=== PATIENT | male | born 1945 | race Caucasian/White ===

== ENCOUNTER 2017-12-04 17:45 | Emergency (ER) | payer OTHER, MEDICARE ==
[~2017-12-04] VITALS: Ht 170.2 cm; Wt 80.0 kg
[2017-12-04] MEDS ORDERED: KETOROLAC TROMETHAMINE 60 MG/2 ML (IM) VIAL IM ONE (18:00)
[2017-12-04] MEDS ORDERED: blood pressure PO (18:01)
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
[2017-12-04 19:15] VITALS: BP 188/90; PULSE 97; RESP 18; O2SAT 97
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
[2017-12-04] MEDS ORDERED: ROBA500T PO (19:57)
== END 2017-12-04 20:16 | disposition home or self-care (01) ==
LOC: NEPC 17:45
DX: S13.4XXA Sprain of ligaments of cervical spine, initial encounter (principal); S33.5XXA Sprain of ligaments of lumbar spine, initial encounter; V89.2XXA Person injured in unspecified motor-vehicle accident, traffic, initial encounter; Y92.411 Interstate highway as the place of occurrence of the external cause; I10 Essential (primary) hypertension; K21.9 Gastro-esophageal reflux disease without esophagitis
CPT/HCPCS: 72125; 72131; 96372; 99283; J1885

== ENCOUNTER 2018-06-04 08:30 | Inpatient (IN) ==
[~2018-06-04 08:30] MED LIST: Bupivacaine/Epinephrine 0.5% Inj 50 ML Vial ONE; Gelatin Size 100 Topical Foam ONE; Thrombin Topical Soln 5,000 UNIT Vial TOPICAL ONE; ceFAZolin 2 GM Premix Inj 2 GM/50 ML PIGGYBACK IV.SIG ONE
[2018-06-04] MEDS ORDERED: Vancomycin Inj 1,000 MG in Sodium Chlor 0.9% Inj 250 ML IV.SIG SCH (10:00)
[2018-06-04] MEDS ORDERED: Sodium Chloride 0.9% 2 ML Flush PRN IV.FLUSH (10:19)
[2018-06-04] MEDS ORDERED: Chlorhexidine Gluconate 2% 1 Pack (2 Cloths) TOPICAL ONE (10:30)
[2018-06-04] MEDS ORDERED: Metoprolol Tartrate 25 MG Tablet PO ONE (10:30)
[2018-06-04] MEDS ORDERED: Sodium Chlor 0.9% Inj 500 ML IV.CONT ONE (10:30)
[2018-06-04] MEDS: Sod Chloride 0.9% Inj 1,000 ML IV.SIG SCH (11:18)
[2018-06-04] MEDS ORDERED: Lidocaine PF 1% Inj 5 ML Syringe OTHER ONE (12:49)
[2018-06-04] MEDS ORDERED: Phenylephrine/NS 1000 MCG/10ML Syringe IV.PUSH ONE (12:49)
[2018-06-04] MEDS ORDERED: HYDROmorphone PF Inj 2 MG/ML Vial ONE ×2 (12:59→18:55)
[2018-06-04] MEDS ORDERED: Propofol Inj 500 MG/50 ML Vial ONE ×3 (12:59→20:10)
[2018-06-04] MEDS ORDERED: Naloxone Inj 0.4 MG/ML Vial IV.PUSH PRN (13:41)
[2018-06-04] MEDS ORDERED: Bisacodyl 10 MG Supp RECTAL PRN (13:41)
[2018-06-04] MEDS ORDERED: Acetaminophen 325 MG Tablet PO PRN (14:06)
[2018-06-04] MEDS ORDERED: HYDROmorphone PCA Inj 6 MG/30 ML PCA.VIAL PCA PRN (14:06)
[2018-06-04] MEDS ORDERED: fentaNYL Citrate Inj 100 MCG/2 ML Ampul ONE ×2 (15:06→18:31)
--- NOTE | 2018-06-04 18:26 | XR ---
EXAM DATE: 06/04/2018 12:00 AM EDT AGE/SEX: 73 years / Male INDICATIONS: Fusion L4,L5 with screws and rods placement. CLINICAL DATA: This is the patient's initial encounter. Patient reports that signs and symptoms have been present for 1 day and indicates a pain score of Nonresponsive. MEDICAL/SURGICAL HISTORY: None. None. COMPARISON: [facility], XR SPINE LUMBAR FLEX AND EXT, 05/21/2018. . FINDINGS: Several images in the operating room show interim fusion procedure with interbody and posterior instr umentation at L4/L5. Alignment is unchanged, near-anatomic. A posterior surgical drain is present. No acute complications are seen. CONCLUSION: Interim fusion with interbody and posterior instrumentation at L4/L5 in near-anatomic alignment. Electronically signed by: Cl Salguero MD 06/04/2018 6:24 PM EDT
[2018-06-04] MEDS ORDERED: *morphine SULFATE 4 MG/ML PERIprocedure ONLY ONE ×2 (18:39→18:47)
--- NOTE | 2018-06-04 18:42 | P.OP ---
Preoperative Diagnosis: Lumbar Postlaminectomy syndrome with spondylolisthesis Postoperative Diagnosis: Lumbar Postlaminectomy syndrome with spondylolisthesis Date of procedure: 06/04/18 Procedure: Redo L4-L5 laminectomy, interbody arthrodesis using PEEK cage and autologous bone graft, L4-L5 instrumental fixation using transpedicular screws and rods, L4 -L5 automation test developer lateral fusion using autologous bone graft and demineralized bone matrix. Microsurgical dissection [facility] Surgeon: Porfirio Pederson MD Student Services Coordinator: Holly Catherine Pathology: none sent Operation and Findings: INDICATIONS FOR THE SURGICAL PROCEDURE Mr Michelle is a 73 year-old male who presented with intractable mechanical back pain and delores evidence of L5 lower extremity radiculopathy. He had history of a prior bilateral laminectomy done by Dr Jeff bush. He failed maximum nonsurgical management including multiple modalities of conservative treatment as well as pain management interventions by an interventional pain specialist. A surgical decompression and arthrodesis were indicated as a last resort. The [id number] details of the procedure, indications, alternatives, risks and potential complications were fully discussed with the patient. The patient fully understood. All the questions were answered. No guarantees were given. The patient voiced requesting the procedure and provided informed consents. The patient was offered the alternative of delaying the procedure and continuing with nonsurgical management. DETAILS OF THE SURGICAL PROCEDURE Prior to the procedure, the surgical incision was marked in the preoperative surgical holding room, and the procedure, risks, and potential complications revisited with the patient. Placement of electrodes for intraoperative neurophysiological monitoring was completed. The patient was taken to the operative room, and following induction of general anesthesia, endotracheal intubation was performed. A Russo catheter, bilateral VERA hose and sequential compression devices were placed and kept throughout the procedure. The patient was positioned prone, over a Mac table over a bolsters. All pressure in the preoperative surgical holding room points were carefully padded with eggcrate and gel mattress. The eyes were tapped shut after ointment was applied by the anesthesiologist to prevent corneal abrasion. A Conrado hugger was placed over the exposed lower body to maintain control of the core body temperature. The electrophysiological team placed the needles and electrodes in their proper location and baseline SSEP's and EMG potentials were registered. The entrance to each pedicles was marked using a C arm. The lumbar region was prepped and draped in the usual sterile fashion. The surgical procedure was performed in several steps as follow: SURGICAL APPROACH Once the patient was positioned, a localizing cross-table lateral x-ray was performed with a C-arm. Two paramedian small incisions were outlined on the skin approximately 3cm from the midline. The skin incisions were made with a # 10 blade. Small bleeders were controlled with the cautery. The dissection was then carried out into deper planes and through the thoracolumbar fascia with a Bovie. The intermuscular septum was identified and the myscles were blunted dissected along the septum. The facets and transverse process of L4 and L5 were exposed and the proper anatomical landmarks were identidied. A microsurgical self-retaining retractor was placed on the incision, and a localizing lateralizing cross-table x-ray was performed with an instrument underneath a lamina of the lumbar spine. INSTRUMENTAL FIXATION At this point in the procedure, placement of bilateral transpedicular screws was necessary for stabilization of the spine. Initially, the entry point for the screw was selected anatomically at the junction of the facet, with the transverse process, and the pars interarticularis at L4 and L5. This was started with a Giamshetti needle followed by the use of a frias wire. A tap was used to create the threads for the screws. Finally bilateral transpedicular screws were carefully placed bilaterally at L4, and L5 under fluoroscopic visualization. An appropriate purchase was achieved with all screws. The position of each screw was assessed anatomically with an AP, lateral , oblique Xrays. An intraoperative scan view of the spine was then performed using the iso-centric c-arm. Each screw was then assessed electrophysiologically stimulating each screw with a nerve stimulator. SURGICAL DECOMPRESSION There was significant mass effect with compression of the neural structures. In order to relieve neural compression, it was necessary to perform a decompressive laminectomy, with decompression of the spinal canal and bilateral lateral recesses. Note that the scope of such decompression was significantly more extensive than the minimal exposure necessary to perform an interbody fusion, as there was extreme facet arthropathy with near complete collapse of the disk spaces and severe stenosis cause by the hyperthrophic joint facets. At this point of the procedure the operative microscope was draped in the usual sterile fashion and brought to the field. The rest of the surgical procedure was performed using microdissection technique with the exception of the closure. Under the operating microscope, a decompressive laminectomy was carried out at L4-L5 as follow: The laminae, base of the spinous processes and facets were carefully drilled exposing the ligamentum flavum. The facets were abnormal with severe spondylolisthesis and gross mechanical instability. A large disk protusion was compressing the neural structures and exiting nerve roots. A near complete facetectomy was necessary resulting in further mechanical instability. The ligamentum flavum appeared hypertrophic, resulting on mass effect on the dorsal surface of the neural structures. The superior free border of the ligamentum flavum was elevated with a ligament dissector and the ligamentum flavum was removed with a 3 and 4 mm Kerrison forceps. The ligament was very adherent to the dural sac and during the dissection, and extreme care was taken during the dissection. The exiting nerve roots were identified, and a wide foraminotomy was performed with a Kerrison in their trajectory towards the neural foramen. Epidural veins located laterally to the dural sac were coagulated with the bipolar cautery, and then incised using microscissors. Gentle medial retraction of the dural sac allowed me to expose the disc space for the discectomy. Upon completion of the discectomy, an excellent decompression of the neural structures was achieved. Increased motion was noted thorough the procedure, which was consistent with mechanical instability. INTERBODY ARTHRODHESIS In order to correct the narrowing of the disk space and maintain distraction of the space, and to achieve a solid interbody fusion, it was necessary the insertion of an interbody device into the disk space. Otherwise, the disk space would collapse, compromising the result of the surgical procedure. At this point of the procedure, the annulus fibrosus of the disk was carefully coagulated with a bipolar cautery and incised using an 11 bladed knife. Then, a microdiscectomy was carried out in a standard fashion using a combination of straight and up-biting pituitary forceps. A reverse angle curette was applied underneath the posterior longitudinal ligament, and used to push the disk fragments into the disk space, so they can be safely removed with a pituitary forceps. Once the discectomy was completed, it was necessary to decorticate the endplates, in order to eliminate the cartilaginous endplate and to expose healthy bone appropriate to perform the interbody fusion. The endplates at L4- L5 were then thoroughly decorticated using increasing size bone uvaldo and ring curets, eliminating the cartilaginous fragments from both, the superior and inferior endplates. A disk space distractor was applied to the pedicle screws and gentle distraction was applied. This maneuver was assisted by the use of a disk distractor. Increased motility was noted at the disk, which was consistent with instability due to facet arthropathy. Once a thorough preparation of the disk space was achieved, the disk space was irrigated with antibiotic solution, and the interbody fusion was performed by carefully impacting an expandable PPEK cage filled with autologous iliac crest bone graft. The cage was cartefully expanded. A solid position of the cage with good purchase was achieved. The position of the cage was assessed anatomically with a probe and radiologically with the C-arm. POSTEROLATERAL FUSION The posterolateral fusion is a critical component to the procedure, to prevent future fatigue and failure of the instrumental fixation. Initially, the transverse processes of the vertebral bodies, lateral surface of the facets and the lateral gutters of the spine were carefully cleaned, eliminating all soft tissue and muscle attachments. The area was then irrigated with a large amount of antibiotic solution. Subsequently, the transverse processes, lateral surface of the facets, and lateral gutters of the spine were thoroughly decorticated using the TPS drill with a 5mm cutting frantz, exposing cancellous bone, in preparation for the posterolateral fusion. The incision was again irrigated with antibiotic solution. Then, the posterolateral fusion was then performed by carefully packing the lateral gutters of the spine at L4-L5 with autologous iliac crest bone combined with demineralized bone matrix. COMPLETION OF THE INSTRUMENTATION AND CLOSURE The rods were brought to the field, applied to all the screws, and the screw caps were sequentially applied. Compression was performed between the pedicle screws, and final tightening of the screws was completed using a torque wrench. The incision was again thoroughly irrigated with several liters of antibiotic solution, and hemostasis secured with the bipolar cautery. A Valsalva Maneuver performed by the anesthesiologist failed to show any evidence of cerebrospinal fluid leak or bleeding. A 7 mm Mac-Palacios drain was left in the epidural space and externalized through a separate stab incision. The incision was then closed in planes. 0 Vicryl was used in an interrupted fashion to close the thoracolumbar fascia and the superficial fascia. The subcutaneous tissue was then approximated using 3-0 Vicryl in an interrupted fashion. Special care was taken to avoid space. The skin was then closed with 4-0 Vicryl in a running, subcuticular fashion. Dermabond was applied to the skin. Each plane of closure was irrigated with antibiotic solution. At the end of the procedure the sponge, needle and instrument counts were all correct. Estimated blood loss was 200cc. No blood transfusion was given. The entire procedure was performed using continuous electrophysiological monitoring of the somatosensorial evoked potentials and EMG. The patient received prophylactic antibiotics. The patient was then extubated and transferred to the recovery room in stable condition.
[2018-06-04] MEDS: Sodium Chloride 0.9% 2 ML Flush BID IV.FLUSH SCH (21:19)
[2018-06-04] MEDS: Senna/Docusate Sodium 8.6/50 MG Tablet PO SCH (21:19)
[2018-06-04] MEDS: ceFAZolin 2 GM Premix Inj 2 GM/50 ML PIGGYBACK IV.SIG SCH (21:19)
--- NOTE | 2018-06-04 22:14 | P.CON ---
History of Present Illness Service: [facility] hospitalists Consult date: 06/04/18 Requesting Physician: Porfirio Pederson Reason for Consult: Assistance with medical management Primary Care Provider: No Primary Care Physician Family Provider: No Primary Care Physician Chief Complaint: Back pain History of Present Illness: Mr. Michelle is a very pleasant 73-year-old male with a history of L4-L5 laminectomy in 2012 due to herniated disc/spinal stenosis who presented to [facility] main campus for redo of L4-L5 laminectomy by Dr. Pederson for lumbar postlaminectomy syndrome with spondylolisthesis. Hospitalist service was consulted for assistance with medical management of hypertension and hyperlipidemia. The patient is seen in his hospital room. He reports severe low back pain that comes and goes intermittently and is worsened with movement. He has not been using his METAL BONDING ASSEMBLER pump for patient-controlled boluses. I instructed him on use of his METAL BONDING ASSEMBLER pump for adequate pain relief. He denies any fevers, chills, chest pain , shortness of breath, nausea, vomiting, or diarrhea. He denies any weakness or paresthesias. Review of Systems All other systems reviewed negative except as stated in HPI PMFSH - History History Provided By: Patient - Medical History Medical History: Medical History (Last Reviewed 06/04/18 @ 22:32 by SETH Shultz) Anxiety Depression Herniated disc High cholesterol Hx deployment Hypertension Spinal stenosis Wears glasses - Surgical History Surgical History: Surgical History (Last Reviewed 06/04/18 @ 22:32 by SETH Shultz) History of appendectomy History of discectomy History of inguinal hernia repair Hx of rotator cuff surgery - Family History Family History: Family History (Last Updated 06/04/18 @ 22:33 by SETH Shultz) Father Family history of KS (myocardial infarction) Brother Family history of COPD (chronic obstructive pulmonary disease) - Social History I have reviewed the patient's Social History: Yes - Tobacco History Second Hand Smoke Exposure: No Smoking Status: Never smoker - Alcohol History How Often Do You Have a Drink Containing Alcohol: 4 or more times a week - Substance Use History Substance History: No History of Abuse - Travel History Recent Travel in the [place] Within the Last 8 Weeks: No Recent Travel Out of the Country Within the Last 8 Weeks: No Medications and Allergies Active Medications: Active Medications Acetaminophen (Tylenol) 650 mg PO Q4H PRN PRN Reason: TEMPERATURE > 101.5 F Hydrocodone Bitart/Acetaminophen ([place] 10/325) 1 tab PO Q4H PRN PRN Reason: Pain Scale 1 To 5 Al Hydroxide/Mg Hydroxide (Milk Of Soraida Quinn) 30 ml PO Q12H PRN PRN Reason: Mild Constipation Albuterol (Albuterol Neb (Prn)) 2.5 mg NEB Q4HR NEB PRN PRN Reason: WHEEZING Amlodipine Besylate (Norvasc) 10 mg PO DAILY [facility] Atorvastatin Calcium (Lipitor) 10 mg PO DAILY [facility] Bisacodyl (Dulcolax Supp) 10 mg RECTAL DAILY PRN PRN Reason: SEVERE CONSITIPATION Clonidine HCl (Catapres) 0.1 mg PO Q6H PRN PRN Reason: SYS BP GREATER THAN 170 MMHG Cyclobenzaprine HCl (Flexeril) 10 mg PO Q8H PRN PRN Reason: MUSCLE SPASM Hydrochlorothiazide (Hydrodiuril) 25 mg PO DAILY [facility] Lactated Ringer's (Lr 1000 Ml Inj) 1,000 mls @ 30 mls/hr IV.CONT .Q24H ONE Stop: 06/05/18 10:29 Last Infusion: 06/04/18 18:38 Dose: Infused Sodium Chloride (Ns Inj) 500 mls @ 30 mls/hr IV.CONT .[id number] ONE Stop: 06/05/18 03:09 Last Admin: 06/04/18 11:18 Dose: Not Given Sodium Chloride (Ns Inj) 1,000 mls @ 30 mls/hr IV.SIG .Q24H [facility] Last Admin: 06/04/18 11:18 Dose: Not Given Vancomycin HCl 1,000 mg/ (Sodium Chloride) 250 mls @ 250 mls/hr IV.SIG WOMEN'S SOCCER COACH [facility] Stop: 06/07/18 09:59 Cefazolin Sodium/Dextrose (Ancef 2 Gm Premix Inj) 2 gm in 50 mls @ 100 mls/hr IV.SIG Q8H [facility] Stop: 06/05/18 14:29 Last Admin: 06/04/18 21:19 Dose: 100 mls/hr Hydromorphone/Sodium Chloride (Dilaudid Family And Consumer Education Teacher Inj) 6 mg in 30 mls @ 0 mls/hr [employer]SEM[employer]ER UNSCH PRN PRN Reason: per METAL BONDING ASSEMBLER parameters Last Admin: 06/04/18 19:45 Dose: 0 mls/hr Lactulose (Lactulose Liq) 30 ml PO DAILY PRN PRN Reason: SEVERE CONSITIPATION Miscellaneous Information (Misc Nursing Information) 1 each OTHER UNSCH PRN PRN Reason: SEE LABEL COMMENTS Stop: 06/05/18 19:14 Naloxone HCl (Narcan Inj) 0.4 mg IV.PUSH PRN PRN PRN Reason: SEE LABEL COMMENTS Ondansetron HCl (Zofran Inj) 4 mg IV.PUSH Q6H PRN PRN Reason: NAUSEA OR VOMITING Pantoprazole Sodium (Protonix) 40 mg PO DAILY [facility] Potassium Chloride (Kcl) 10 meq PO DAILY [facility] Senna/Docusate Sodium (Perri-Colace) 1 tab PO BID [facility] Last Admin: 06/04/18 21:19 Dose: 1 tab Sennosides (Senokot) 17.2 mg PO Q12H PRN PRN Reason: Moderate Constipation Sodium Chloride (Ns Flush) 2 ml IV.FLUSH BID [facility] Last Admin: 06/04/18 21:19 Dose: 2 ml Sodium Chloride (Ns Flush) 2 ml IV.FLUSH PRN PRN PRN Reason: FLUSH AFTER USING IV ACCESS Venlafaxine HCl (Effexor Xr) 150 mg PO DAILY [facility] Zolpidem Tartrate (Ambien) 10 mg PO [facility] Allergies Allergy/AdvReac Type Severity Reaction Status Date / Time No Known Allergies Allergy Verified 06/04/18 11:02 Home Medications Medication Instructions Recorded Confirmed Type amlodipine 10 mg PO DAILY 06/01/18 06/04/18 History hydrochlorothiazide 25 mg PO DAILY 06/01/18 06/04/18 History potassium chloride 10 meq PO DAILY 06/01/18 06/04/18 History rosuvastatin 10 mg PO DAILY 06/01/18 06/04/18 History venlafaxine 150 mg PO DAILY 06/01/18 06/04/18 History zolpidem 10 mg PO DAILY 06/01/18 06/04/18 History Physical Exam Vital signs: Vital Signs 06/04/18 11:02 06/04/18 18:17 06/04/18 18:30 Temperature 98.2 F 98.3 F Pulse Rate 74 93 H 92 H Respiratory Rate 16 14 14 Blood Pressure 149/89 H 124/66 125/60 Pulse Oximetry 98 98 95 06/04/18 18:45 06/04/18 19:00 06/04/18 19:15 Temperature Pulse Rate 106 H 109 H 96 H Respiratory Rate 12 13 13 Blood Pressure 104/54 L 99/48 L 98/56 L Pulse Oximetry 98 97 97 06/04/18 19:30 06/04/18 19:45 06/04/18 20:00 Temperature 98.4 F Pulse Rate 96 H 100 H 96 H Respiratory Rate 12 12 14 Blood Pressure 113/62 116/63 119/60 Pulse Oximetry 95 96 97 06/04/18 20:32 Temperature Pulse Rate Respiratory Rate 17 Blood Pressure Pulse Oximetry Intake & Output 06/04/18 06/04/18 06/05/18 06:59 18:59 06:59 Intake Total 2450 / 2450 60 / 60 Output Total 1100 / 1100 180 / 180 Balance 1350 / 1350 -120 / -120 Weight 78.5 kg Intake: IV 1050 / 1050 LR 1000 mL Inj 1,000 ML @ 30 1000 / 1000 mls/hr IV.CONT .Q24H ONE Rx#: [id number] Ancef 2 GM Premix Inj 2 gm In 50 / 50 50 ml @ 0 mls/hr IV.SIG .STK- MED ONE Rx#:[id number] Oral 60 / 60 Anesthesia Amount 1400 / 1400 Output: Estimated Blood Loss 200 / 200 Urine Amount (Catheter) 900 / 900 150 / 150 Indwelling Urethral Catheter 900 / 900 150 / 150 Wound Drainage 30 / 30 Lower Back 30 / 30 Other: Weight On Admission 78.5 kg Narrative: GENERAL: This is a very pleasant well-nourished, well-developed elderly male patient, in no apparent distress. SKIN: No rashes, ecchymoses or lesions. Cool and dry. HEAD: Atraumatic. Normocephalic. EYES: No scleral icterus. No injection or drainage. ENT: Nose without bleeding, purulent drainage. NECK: Trachea midline. No JVD. CARDIOVASCULAR: Regular rate and rhythm without murmurs, gallops, or rubs. RESPIRATORY: Clear to auscultation. Breath sounds equal bilaterally. No wheezes , rales, or rhonchi. GASTROINTESTINAL: Abdomen soft, non-tender, nondistended. No guarding. MUSCULOSKELETAL: Extremities without clubbing, cyanosis, or edema. No calf tenderness. NEUROLOGICAL: Awake and alert. Motor and sensory grossly within normal limits. Normal speech. . - Urinary Catheter Management Indwelling Urethral Catheter Cath placed during this visit: yes Reason for continuing: Hourly intake/output Insertion date: 06/04/18 Insertion time: 13:10 Assessment and Plan - Plan Mr. Michelle is a very pleasant 73-year-old male with a history of L4-L5 laminectomy in 2012 due to herniated disc/spinal stenosis who presented to [facility] [place] for redo of L4-L5 laminectomy by Dr. Pederson for lumbar postlaminectomy syndrome with spondylolisthesis. Hospitalist service was consulted for assistance with medical management of hypertension and hyperlipidemia. Status post L4-L5 laminectomy by Dr. Pederson -Reviewed use of METAL BONDING ASSEMBLER pain pump for adequate analgesia -Further management per Dr. Pederson Hypertension -Home medications continued: Amlodipine, hydrochlorothiazide -PRN clonidine for blood pressure elevation -Monitor blood pressure trends and adjust treatments as needed - bp currently well-controlled Anxiety/depression -Home Effexor continued Hyperlipidemia -Home statin continued DVT prophylaxis -SCDs -Chemoprophylaxis per neurosurgery . Discussed Condition With: patient and Dr. Gutierrez .
[2018-06-05] MEDS: ceFAZolin 2 GM Premix Inj 2 GM/50 ML PIGGYBACK IV.SIG SCH ×2 (05:09→13:39)
--- NOTE | 2018-06-05 07:43 | P.PN ---
Subjective Interval history: awake and alert + pain low back- not much when laying still but increase pain when he tries to move on HEAD PORTER BAGGAGE pump- currently post op as OP was on po Lortab Physical Exam Vital signs: Vital Signs 06/04/18 11:02 06/04/18 18:17 06/04/18 18:30 Temperature 98.2 F 98.3 F Pulse Rate 74 93 H 92 H Respiratory Rate 16 14 14 Blood Pressure 149/89 H 124/66 125/60 Pulse Oximetry 98 98 95 06/04/18 18:45 06/04/18 19:00 06/04/18 19:15 Temperature Pulse Rate 106 H 109 H 96 H Respiratory Rate 12 13 13 Blood Pressure 104/54 L 99/48 L 98/56 L Pulse Oximetry 98 97 97 06/04/18 19:30 06/04/18 19:45 06/04/18 20:00 Temperature 98.4 F Pulse Rate 96 H 100 H 96 H Respiratory Rate 12 12 14 Blood Pressure 113/62 116/63 119/60 Pulse Oximetry 95 96 97 06/04/18 20:32 06/05/18 00:00 06/05/18 00:15 Temperature 97.2 F L Pulse Rate 103 H Respiratory Rate 17 18 18 Blood Pressure 151/81 H Pulse Oximetry 97 06/05/18 04:00 Temperature 97.9 F Pulse Rate 89 Respiratory Rate 18 Blood Pressure 162/79 H Pulse Oximetry 97 Intake & Output 06/04/18 06/05/18 06/05/18 18:59 06:59 18:59 Intake Total 2450 / 2450 110 / 110 Output Total 1100 / 1100 1105 / 1105 Balance 1350 / 1350 -995 / -995 Weight 78.5 kg Intake: IV 1050 / 1050 50 / 50 LR 1000 mL Inj 1,000 ML @ 30 1000 / 1000 mls/hr IV.CONT .Q24H ONE Rx#: [id number] Ancef 2 GM Premix Inj 2 gm In 50 / 50 50 / 50 50 ml @ 100 mls/hr IV.SIG Q8H [facility] Rx#:[id number] Oral 60 / 60 Anesthesia Amount 1400 / 1400 Output: Urine 925 / 925 Estimated Blood Loss 200 / 200 Urine Amount (Catheter) 900 / 900 150 / 150 Indwelling Urethral Catheter 900 / 900 150 / 150 Wound Drainage 30 / 30 Lower Back 30 / 30 Other: Weight On Admission 78.5 kg Narrative: GENERAL: This is a very pleasant well-nourished, well-developed elderly male patient, in no apparent distress. HEAD: Atraumatic EYES: No scleral icterus. ENT: Nose without bleeding NECK: Trachea midline. No JVD. CARDIOVASCULAR: Regular rate and rhythm without murmurs, gallops, or rubs. RESPIRATORY: Clear to auscultation. Breath sounds equal bilaterally. No wheezes , rales, or rhonchi. GASTROINTESTINAL: Abdomen soft, non-tender, nondistended. No guarding. + alejandra catheter in place MUSCULOSKELETAL: Extremities without clubbing, cyanosis, or edema. No calf tenderness. SCDs in place grossly no sensory deficits, moves all extremities spontaneously NEUROLOGICAL: Awake and alert. moves all extremities spontaneously . - Urinary Catheter Management Indwelling Urethral Catheter Cath placed during this visit: yes Reason for continuing: Hourly intake/output Insertion date: 06/04/18 Insertion time: 13:10 Results - Labs Laboratory Results - last 24 hr 06/04/18 10:30 Blood Type O Positive Blood Type Recheck Required Antibody Screen Negative - Imaging Impressions Lumbar Spine X-Ray 06/04/18 00:00 CONCLUSION: Interim fusion with interbody and posterior instrumentation at L4/L5 in near- anatomic alignment. - Procedures 06/04 Redo L4-L5 laminectomy, interbody arthrodesis using PEEK cage and autologous bone graft, L4-L5 instrumental fixation using transpedicular screws and rods, L4 -L5 sorting cows worker lateral fusion using autologous bone graft and demineralized bone matrix. Microsurgical dissection Assessment and Plan - Plan Mr. Michelle is a very pleasant 73-year-old male with a history of L4-L5 laminectomy in 2012 due to herniated disc/spinal stenosis who [place] [facility] [place] redo of L4-L5 laminectomy by Dr. Pederson for lumbar postlaminectomy syndrome with spondylolisthesis. Status post L4-L5 laminectomy y Dr. Pederson -Reviewed use of HEAD PORTER BAGGAGE pain pump for adequate analgesia -Further management per Dr. Pederson - PT eval Hypertension - some eleated readings due to pain- encouraged patient to use HEAD PORTER BAGGAGE pump -Home medications continued: Amlodipine, hydrochlorothiazide -PRN clonidine for blood pressure elevation Anxiety/depression -Home Effexor continued Hyperlipidemia -Home statin continued DVT prophylaxis -SCDs CM- DC planning- home with OP/Home PT vs SNF .
[2018-06-05 08:07] LABS: Baso % (Auto) 0.1 % (0.0-2.0); Hematocrit 36.5 % (39.0-51.0); Hemoglobin 12.8 gm/dL (13.0-17.0); Lymph # (Auto) 0.8 th/mm3 (1.0-4.8); Lymph % (Auto) 12.2 % (9.0-44.0); Mean Corpuscular HGB Conc 35.2 % (32.0-36.0); Mean Corpuscular Hemoglobin 33.4 pg (27.0-34.0); Mean Corpuscular Volume 94.9 fL (80.0-100.0); Mono # (Auto) 0.8 th/mm3 (0.0-0.9); Mono % (Auto) 12.5 % (0.0-8.0); Neut # (Auto) 4.9 th/mm3 (1.8-7.7); Neut % (Auto) 75.2 % (16.0-70.0); Platelet Count 191 th/mm3 (150-450); Red Blood Count 3.84 mil/mm3 (4.50-5.90); Red Cell Distribution Width 12.7 % (11.6-17.2); White Blood Count 6.5 th/mm3 (4.0-11.0)
[2018-06-05 08:32] LABS: Calcium 8.1 mg/dL (8.5-10.1); Carbon Dioxide 23.8 meq/L (21.0-32.0); Potassium 3.7 meq/L (3.5-5.1)
[2018-06-05] MEDS: Senna/Docusate Sodium 8.6/50 MG Tablet PO SCH ×2 (08:46→20:39)
[2018-06-05] MEDS: Potassium Chloride 10 MEQ ER Capsule PO SCH (08:46)
[2018-06-05] MEDS: amLODIPine 10 MG Tablet PO SCH (08:46)
[2018-06-05] MEDS: hydroCHLOROthiazide 25 MG Tablet PO SCH (08:46)
[2018-06-05] MEDS: Venlafaxine XR 75 MG Capsule PO SCH (08:47)
[2018-06-05] MEDS: Sodium Chloride 0.9% 2 ML Flush BID IV.FLUSH SCH ×2 (08:47→20:39)
--- NOTE | 2018-06-05 11:24 | P.PNNS ---
Subjective Interval history: Did well overnight, did not use CONCRETE MIXER much, ambulated the [place] and back with PT states "midline pain is gone, but I have a right-sided pain", overall pleased with surgery, asking about discharge Physical Exam Vital signs: Vital Signs 06/04/18 18:17 06/04/18 18:30 06/04/18 18:45 Temperature 98.3 F Pulse Rate 93 H 92 H 106 H Respiratory Rate 14 14 12 Blood Pressure 124/66 125/60 104/54 L Pulse Oximetry 98 95 98 06/04/18 19:00 06/04/18 19:15 06/04/18 19:30 Temperature Pulse Rate 109 H 96 H 96 H Respiratory Rate 13 13 12 Blood Pressure 99/48 L 98/56 L 113/62 Pulse Oximetry 97 97 95 06/04/18 19:45 06/04/18 20:00 06/04/18 20:32 Temperature 98.4 F Pulse Rate 100 H 96 H Respiratory Rate 12 14 17 Blood Pressure 116/63 119/60 Pulse Oximetry 96 97 06/05/18 00:00 06/05/18 00:15 06/05/18 04:00 Temperature 97.2 F L 97.9 F Pulse Rate 103 H 89 Respiratory Rate 18 18 18 Blood Pressure 151/81 H 162/79 H Pulse Oximetry 97 97 06/05/18 08:00 Temperature 97.4 F L Pulse Rate 82 Respiratory Rate 18 Blood Pressure 135/75 Pulse Oximetry 95 Intake & Output 06/04/18 06/05/18 06/05/18 18:59 06:59 18:59 Intake Total 2450 / 2450 400 / 400 Output Total 1100 / 1100 1150 / 1150 Balance 1350 / 1350 -750 / -750 Weight 78.5 kg Intake: IV 1050 / 1050 100 / 100 LR 1000 mL Inj 1,000 ML @ 30 1000 / 1000 mls/hr IV.CONT .Q24H [facility] Rx#: [id number] Ancef 2 GM Premix Inj 2 gm In 50 / 50 100 / 100 50 ml @ 100 mls/hr IV.SIG Q8H [facility] Rx#:[id number] Oral 300 / 300 Anesthesia Amount 1400 / 1400 Output: Urine 925 / 925 Estimated Blood Loss 200 / 200 Urine Amount (Catheter) 900 / 900 150 / 150 Indwelling Urethral Catheter 900 / 900 150 / 150 Wound Drainage 75 / 75 Lower Back 75 / 75 Other: Date of Last Bowel Movement 06/04/18 Weight On Admission 78.5 kg Narrative: A&O x 3 CN II-XII intact Motor 5/5 UE/LE Dressing c/d/i sitting comfortably . - Urinary Catheter Management Indwelling Urethral Catheter Cath placed during this visit: yes Reason for continuing: Hourly intake/output Insertion date: 06/04/18 Insertion time: 13:10 Assessment and Plan - Plan D/c alejandra. Wean CONCRETE MIXER to orals. Ambulate with PT. Keep BRENTON drain in one more day (last was 45/overnight). Ambulate with PT Likely d/c Thursday.
[2018-06-05] MEDS: Sod Chloride 0.9% Inj 1,000 ML IV.SIG SCH (12:41)
[2018-06-06] MEDS: Venlafaxine XR 75 MG Capsule PO SCH (08:05)
[2018-06-06] MEDS: Senna/Docusate Sodium 8.6/50 MG Tablet PO SCH ×2 (08:05→21:59)
[2018-06-06] MEDS: Sodium Chloride 0.9% 2 ML Flush BID IV.FLUSH SCH ×2 (08:06→22:00)
[2018-06-06] MEDS: Potassium Chloride 10 MEQ ER Capsule PO SCH (08:06)
[2018-06-06] MEDS: hydroCHLOROthiazide 25 MG Tablet PO SCH (08:06)
[2018-06-06] MEDS: amLODIPine 10 MG Tablet PO SCH (08:06)
[2018-06-06 08:07] VITALS: RESP 18
--- NOTE | 2018-06-06 08:33 | P.PN ---
Subjective Interval history: no complains Physical Exam Vital signs: Vital Signs 06/05/18 12:00 06/05/18 12:22 06/05/18 12:52 Temperature 97.4 F L Pulse Rate 84 Respiratory Rate 18 18 18 Blood Pressure 141/84 H Pulse Oximetry 96 06/05/18 16:00 06/05/18 16:06 06/05/18 16:36 Temperature 97.8 F Pulse Rate 82 Respiratory Rate 18 18 18 Blood Pressure 133/81 Pulse Oximetry 94 L 06/05/18 20:00 06/05/18 20:40 06/06/18 00:00 Temperature 97.8 F 98.5 F Pulse Rate 80 87 Respiratory Rate 18 18 18 Blood Pressure 132/70 144/85 H Pulse Oximetry 95 96 06/06/18 03:34 06/06/18 07:04 06/06/18 08:00 Temperature 98.4 F Pulse Rate 76 Respiratory Rate 20 20 17 Blood Pressure 143/89 H Pulse Oximetry 93 L 06/06/18 08:06 Temperature Pulse Rate Respiratory Rate 18 Blood Pressure Pulse Oximetry Intake & Output 06/05/18 06/06/18 06/06/18 18:59 06:59 18:59 Intake Total 800 / 800 Output Total 415 / 415 0 / 0 Balance 385 / 385 0 / 0 Weight 77.8 kg Intake: IV 50 / 50 Ancef 2 GM Premix Inj 2 gm In 50 / 50 50 ml @ 100 mls/hr IV.SIG Q8H [facility] Rx#:[id number] Oral 750 / 750 Output: Urine 400 / 400 Wound Drainage 15 / 15 0 / 0 Lower Back 15 / 15 0 / 0 Other: # Voids 4 Date of Last Bowel Movement 06/04/18 06/04/18 06/04/18 # Bowel Movements 0 Narrative: awake and alert, oriented x 3 anicteric lungs- clear regular rhythm abdomen-soft, nontender back- drain in place- BRENTON bulb- extremites no edema no calf tenderenss - Urinary Catheter Management Indwelling Urethral Catheter Cath placed during this visit: yes, but has since been removed by the nurse Reason for continuing: Decision to DC catheter Insertion date: 06/04/18 Insertion time: 13:10 Removal date: 06/05/18 Removal time: 12:34 Results - Labs CBC & Chem 7: 06/05/18 07:01 06/05/18 07:01 Laboratory Results - last 24 hr 06/05/18 07:01 Sodium 141 Potassium 3.7 Chloride 107 Carbon Dioxide 23.8 Anion Gap 10 BUN 14 Creatinine 0.87 Estimated GFR 87 L Random Glucose 116 H Calcium 8.1 L - Procedures 06/04 Redo L4-L5 laminectomy, interbody arthrodesis using PEEK cage and autologous bone graft, L4-L5 instrumental fixation using transpedicular screws and rods, 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 Microsurgical dissection Assessment and Plan - Plan Mr. Michelle is a very pleasant 73-year-old male with a history of L4-L5 laminectomy in 2012 due to herniated disc/spinal stenosis who presented to [facility] [place] main campus for redo of L4-L5 laminectomy by Dr. Pederson for lumbar postlaminectomy syndrome with spondylolisthesis. Status post L4-L5 laminectomy 06/[address] Pederson -Neurosurgery ff - PT eval daily Hypertension - continue on Amlodipine, hydrochlorothiazide -PRN clonidine for blood pressure elevation Anxiety/depression -Home Effexor continued Hyperlipidemia -Home statin continued DVT prophylaxis -SCDs CM- DC planning- home with OP/Home PT vs SNF when cleared with Primary service- hopefully Thursday .
[2018-06-06] MEDS: Sod Chloride 0.9% Inj 1,000 ML IV.SIG SCH (09:51)
--- NOTE | 2018-06-06 11:55 | P.PNNS ---
Subjective Interval history: Did well. Ambulated. Pain controlled. Drain with low output overnight. Physical Exam Vital signs: Vital Signs 06/05/18 12:00 06/05/18 12:22 06/05/18 12:52 Temperature 97.4 F L Pulse Rate 84 Respiratory Rate 18 18 18 Blood Pressure 141/84 H Pulse Oximetry 96 06/05/18 16:00 06/05/18 16:06 06/05/18 16:36 Temperature 97.8 F Pulse Rate 82 Respiratory Rate 18 18 18 Blood Pressure 133/81 Pulse Oximetry 94 L 06/05/18 20:00 06/05/18 20:40 06/06/18 00:00 Temperature 97.8 F 98.5 F Pulse Rate 80 87 Respiratory Rate 18 18 18 Blood Pressure 132/70 144/85 H Pulse Oximetry 95 96 06/06/18 03:34 06/06/18 07:04 06/06/18 08:00 Temperature 98.4 F Pulse Rate 76 Respiratory Rate 20 20 17 Blood Pressure 143/89 H Pulse Oximetry 93 L 06/06/18 08:06 06/06/18 08:36 Temperature Pulse Rate Respiratory Rate 18 18 Blood Pressure Pulse Oximetry Intake & Output 06/05/18 06/06/18 06/06/18 18:59 06:59 18:59 Intake Total 800 / 800 Output Total 415 / 415 0 / 0 Balance 385 / 385 0 / 0 Weight 77.8 kg Intake: IV 50 / 50 Ancef 2 GM Premix Inj 2 gm In 50 / 50 50 ml @ 100 mls/hr IV.SIG Q8H [facility] Rx#:[id number] Oral 750 / 750 Output: Urine 400 / 400 Wound Drainage 15 / 15 0 / 0 Lower Back 15 / 15 0 / 0 Other: # Voids 4 Date of Last Bowel Movement 06/04/18 06/04/18 06/04/18 # Bowel Movements 0 Narrative: A&O x 3 CN II - XII intact Motor 5/5 UE/LE Incision c/d/i - Urinary Catheter Management Indwelling Urethral Catheter Cath placed during this visit: yes, but has since been removed by the nurse Reason for continuing: Decision to DC catheter Insertion date: 06/04/18 Insertion time: 13:10 Removal date: 06/05/18 Removal time: 12:34 Assessment and Plan - Plan Pain controlled Ambulate with PT. D/c BRENTON drain today Likely d/c Thursday.
--- NOTE | 2018-06-06 14:13 | P.DCO ---
- Physical Therapy Order: Evaluate and treat, Improve ambulation, Strength and gait training - Home Health Nursing Order: Signs/symptoms of disease process, Nursing assessment with vital signs - Case Management Consult Yes - Certification I have seen patient Shahab Michelle on 06/06/18. My clinical findings support the need for the requested home health care services because: Limited mobility due to disease progression, Deconditioned with increased weakness I certify that my clinical findings support that this patient is homebound because: Post-op weakness
[2018-06-07 04:32] VITALS: O2SAT 95
[2018-06-07 08:51] VITALS: BP 151/83; PULSE 72; TEMP 98.6
--- NOTE | 2018-06-07 09:03 | P.DS ---
Date of admission: 06/04/18 09:49 Primary care physician: No Primary Care Physician Brief History from admission: Mr Michelle is a 73 year-old male who presented with intractable mechanical back pain and delores evidence of L5 lower extremity radiculopathy. He had history of a prior bilateral laminectomy done by Dr Jeff bush. He failed maximum nonsurgical management including multiple modalities of conservative treatment as well as pain management interventions by an interventional pain specialist. A surgical decompression and arthrodesis were indicated as a last resort. DS: Summary Hospital Course: Mr. Michelle underwent a Redo L4-L5 laminectomy, interbody arthrodesis using PEEK cage and autologous bone graft, L4-L5 instrumental fixation using transpedicular screws and rods, L4-L5 oxygraph operator lateral fusion using autologous bone graft and demineralized bone matrix. Microsurgical dissection for Lumbar Postlaminectomy syndrome with spondylolisthesis on 06/04/18. His postoperative pain controlled. He is discharged home in stable conditions. - Time Spent with Patient Total time spent providing and/or coordinating discharge services: Less than 30 minutes - Quality: VTE Deep Vein Thrombosis/Pulmonary Embolism Present on Admission: No Exam Vital signs: Vital Signs 06/06/18 12:00 06/06/18 12:04 06/06/18 12:34 Temperature 98.9 F Pulse Rate 102 H Respiratory Rate 18 18 18 Blood Pressure 96/54 L Pulse Oximetry 91 L 06/06/18 16:00 06/06/18 16:09 06/06/18 16:39 Temperature 98.4 F Pulse Rate 80 Respiratory Rate 18 18 18 Blood Pressure 130/78 Pulse Oximetry 91 L 06/06/18 20:52 06/07/18 00:00 06/07/18 03:37 Temperature 98.3 F 97.5 F L 97.2 F L Pulse Rate 83 82 71 Respiratory Rate 18 18 18 Blood Pressure 122/71 123/68 142/73 H Pulse Oximetry 97 96 95 06/07/18 08:00 Temperature 98.6 F Pulse Rate 72 Respiratory Rate 18 Blood Pressure 151/83 H Pulse Oximetry 95 Intake & Output 06/06/18 06/07/18 06/07/18 18:59 06:59 18:59 Intake Total 960 / 960 240 / 240 Balance 960 / 960 240 / 240 Weight 77.8 kg 107.5 kg Intake: Oral 960 / 960 240 / 240 Other: # Voids 2 1 Date of Last Bowel Movement 06/04/18 # Bowel Movements 0 0 Results Procedures completed during hospitalization: 06/04 Redo L4-L5 laminectomy, interbody arthrodesis using PEEK cage and autologous bone graft, L4-L5 instrumental fixation using transpedicular screws and rods, L4 -L5 oxygraph operator lateral fusion using autologous bone graft and demineralized bone matrix. Microsurgical dissection - Impressions ITS Impressions Lumbar Spine X-Ray 06/04/18 00:00 CONCLUSION: Interim fusion with interbody and posterior instrumentation at L4/L5 in near- anatomic alignment. Discharge Plan - Physicians Team Primary Care Provider: Primary Care Heather Henderson Attending Provider: Porfirio Pederson Other Providers: aWhere,Insurance ; Citlaly Camara MD - Rxs /Orders / Referrals /Forms Prescriptions: New hydrocodone-acetaminophen 10-325 mg Tablet 1 tab PO Q4-6H PRN (Reason: Pain Scale 1 To 5) 7 Days Qty: 28 RF: 0 Continue amlodipine 10 mg Tablet 10 mg PO DAILY hydrochlorothiazide 25 mg Tablet 25 mg PO DAILY potassium chloride 10 mEq Capsule, Extended Release 10 meq PO DAILY rosuvastatin 10 mg Tablet 10 mg PO DAILY venlafaxine 150 mg Tablet Extended Release 24hr 150 mg PO DAILY zolpidem 10 mg Tablet 10 mg PO DAILY Ambulatory Orders / Order Sets / DME: Walker With Front Wheels (1 each) (Routine) Location: Determined by Patient Ordered By: Armand Ochoa Referrals: Primary Care Heather Henderson [Primary Care Provider] - See Instructions - Discharge Instructions Patient Printed Instructions: Laminectomy (DC), Narcotic Pain Management (DC), Neutropenic Precautions (GEN), Lumbar Brace (GEN) Additional Instructions: Take medications as directed. Follow up as instructed by your providers. - Post Discharge Care Plan Care Plan Goals: Your Health Problems: Goals to Promote Your Health: * To prevent worsening of your condition * To maintain your health at the optimal level Directions to Meet Your Goals: * Take your medications as prescribed * Follow your dietary instruction * Follow activity as directed * Keep your appointments as scheduled * Take your immunizations and boosters as scheduled * If your symptoms worsen call your PCP * If no PCP go to Urgent Care or Emergency Room Smoking is dangerous to your health. Avoid second hand smoke. You may reach the 24-hour crisis hotline for domestic abuse at .
[2018-06-07] MEDS: Venlafaxine XR 75 MG Capsule PO SCH (09:47)
[2018-06-07] MEDS: Potassium Chloride 10 MEQ ER Capsule PO SCH (09:47)
[2018-06-07] MEDS: hydroCHLOROthiazide 25 MG Tablet PO SCH (09:48)
[2018-06-07] MEDS: Senna/Docusate Sodium 8.6/50 MG Tablet PO SCH (09:48)
[2018-06-07] MEDS: amLODIPine 10 MG Tablet PO SCH (09:48)
== END 2018-06-07 12:38 | disposition home health service (06) ==
LOC: HSDI 09:49 → N06 20:25
PROVIDERS: ADMIT Neurological Surgery; ATTEND Neurological Surgery
PROC: LAMPLIF (2018-06-04 12:49)